=== PATIENT | male | born 1935 | race Caucasian/White ===

== ENCOUNTER → 2020-07-26 | Outpatient (CLI) | payer OTHER, BC | LOC: HYPER 08:31 | PROVIDERS: ATTEND Emergency Medicine | DX: L92.1 Necrobiosis lipoidica, not elsewhere classified (principal); E11.628 Type 2 diabetes mellitus with other skin complications; L20.81 Atopic neurodermatitis; L30.4 Erythema intertrigo; R60.1 Generalized edema; I10 Essential (primary) hypertension; E78.5 Hyperlipidemia, unspecified; R26.9 Unspecified abnormalities of gait and mobility; Z79.82 Long term (current) use of aspirin; Z79.4 Long term (current) use of insulin; Z96.653 Presence of artificial knee joint, bilateral; Z90.49 Acquired absence of other specified parts of digestive tract; Z98.890 Other specified postprocedural states; Z87.891 Personal history of nicotine dependence ==

== ENCOUNTER → 2020-08-02 | Outpatient (CLI) | payer OTHER, BC | LOC: HYPER 09:44 | PROVIDERS: ATTEND Emergency Medicine | DX: L20.81 Atopic neurodermatitis (principal); E11.628 Type 2 diabetes mellitus with other skin complications; L92.1 Necrobiosis lipoidica, not elsewhere classified; L30.4 Erythema intertrigo; R60.0 Localized edema; E66.9 Obesity, unspecified; I10 Essential (primary) hypertension; E78.5 Hyperlipidemia, unspecified; Z68.42 Body mass index [BMI] 45.0-49.9, adult; Z87.891 Personal history of nicotine dependence; Z79.4 Long term (current) use of insulin; Z79.82 Long term (current) use of aspirin; Z79.899 Other long term (current) drug therapy ==

== ENCOUNTER → 2020-08-11 | Outpatient (CLI) | payer OTHER, BC | LOC: SJCVCIMAG 07:43 | PROVIDERS: ATTEND Emergency Medicine | DX: I87.2 Venous insufficiency (chronic) (peripheral) (principal); M79.661 Pain in right lower leg; M79.662 Pain in left lower leg ==

== ENCOUNTER → 2020-08-16 | Outpatient (CLI) | payer OTHER, BC | LOC: HYPER 09:36 | PROVIDERS: ATTEND Emergency Medicine | DX: R21 Rash and other nonspecific skin eruption (principal); L20.81 Atopic neurodermatitis; E11.628 Type 2 diabetes mellitus with other skin complications; L92.1 Necrobiosis lipoidica, not elsewhere classified; L30.4 Erythema intertrigo; R60.0 Localized edema; E66.01 Morbid (severe) obesity due to excess calories; E78.5 Hyperlipidemia, unspecified; I10 Essential (primary) hypertension; Z68.42 Body mass index [BMI] 45.0-49.9, adult; Z87.891 Personal history of nicotine dependence ==

== ENCOUNTER → 2020-09-06 | Outpatient (CLI) | payer OTHER, BC | LOC: HYPER 08:06 | PROVIDERS: ATTEND Emergency Medicine | DX: R21 Rash and other nonspecific skin eruption (principal); L20.81 Atopic neurodermatitis; E11.628 Type 2 diabetes mellitus with other skin complications; L92.1 Necrobiosis lipoidica, not elsewhere classified; L30.4 Erythema intertrigo; R60.1 Generalized edema; E66.01 Morbid (severe) obesity due to excess calories; E78.5 Hyperlipidemia, unspecified; I10 Essential (primary) hypertension; Z68.42 Body mass index [BMI] 45.0-49.9, adult; Z87.891 Personal history of nicotine dependence; Z79.82 Long term (current) use of aspirin; Z79.4 Long term (current) use of insulin ==

== ENCOUNTER → 2020-10-04 | Outpatient (CLI) | payer OTHER, BC | LOC: SJCVCIMAG 07:27 | PROVIDERS: ATTEND Nuclear Medicine Nuclear Cardiology | DX: I65.23 Occlusion and stenosis of bilateral carotid arteries (principal); I70.201 Unspecified atherosclerosis of native arteries of extremities, right leg; E78.00 Pure hypercholesterolemia, unspecified; I10 Essential (primary) hypertension; E11.9 Type 2 diabetes mellitus without complications; I87.309 Chronic venous hypertension (idiopathic) without complications of unspecified lower extremity; I87.2 Venous insufficiency (chronic) (peripheral); E78.5 Hyperlipidemia, unspecified; Z79.4 Long term (current) use of insulin; Z79.82 Long term (current) use of aspirin; Z79.899 Other long term (current) drug therapy; Z88.8 Allergy status to other drugs, medicaments and biological substances; Z87.891 Personal history of nicotine dependence ==

== ENCOUNTER → 2020-10-18 | Outpatient (CLI) | payer OTHER, BC | LOC: HYPER 08:25 | PROVIDERS: ATTEND Emergency Medicine | DX: R21 Rash and other nonspecific skin eruption (principal); L20.81 Atopic neurodermatitis; E11.628 Type 2 diabetes mellitus with other skin complications; L92.1 Necrobiosis lipoidica, not elsewhere classified; L30.4 Erythema intertrigo; R60.1 Generalized edema; E66.01 Morbid (severe) obesity due to excess calories; E78.5 Hyperlipidemia, unspecified; I10 Essential (primary) hypertension; Z68.42 Body mass index [BMI] 45.0-49.9, adult; Z87.891 Personal history of nicotine dependence; Z79.82 Long term (current) use of aspirin; Z79.4 Long term (current) use of insulin ==

== ENCOUNTER → 2021-01-18 | Outpatient (CLI) | payer OTHER, BC | LOC: HYPER 08:32 | PROVIDERS: ATTEND Emergency Medicine | DX: R21 Rash and other nonspecific skin eruption (principal); L20.81 Atopic neurodermatitis; L84 Corns and callosities; E11.628 Type 2 diabetes mellitus with other skin complications; L92.1 Necrobiosis lipoidica, not elsewhere classified; L30.4 Erythema intertrigo; R60.1 Generalized edema; E66.01 Morbid (severe) obesity due to excess calories; E78.5 Hyperlipidemia, unspecified; I10 Essential (primary) hypertension; Z68.42 Body mass index [BMI] 45.0-49.9, adult; Z87.891 Personal history of nicotine dependence; Z79.82 Long term (current) use of aspirin; Z79.4 Long term (current) use of insulin ==

== ENCOUNTER → 2021-03-01 | Outpatient (CLI) | payer OTHER, BC | LOC: HYPER 09:09 | PROVIDERS: ATTEND Emergency Medicine | DX: E11.628 Type 2 diabetes mellitus with other skin complications (principal); L92.1 Necrobiosis lipoidica, not elsewhere classified; L20.81 Atopic neurodermatitis; L30.4 Erythema intertrigo; R60.1 Generalized edema; R21 Rash and other nonspecific skin eruption; E78.5 Hyperlipidemia, unspecified; I10 Essential (primary) hypertension; E66.9 Obesity, unspecified; Z68.42 Body mass index [BMI] 45.0-49.9, adult; Z79.82 Long term (current) use of aspirin; Z79.4 Long term (current) use of insulin; Z87.891 Personal history of nicotine dependence; Z79.899 Other long term (current) drug therapy ==